=== PATIENT | male | born 1995 | race Caucasian/White ===

== ENCOUNTER 2024-09-23 08:48 | Outpatient (CLI) | payer OTHER | END 2024-09-23 08:49 | disposition home or self-care (01) | LOC: CSHSLEEP 08:48 | PROVIDERS: ATTEND Family Medicine | DX: G47.33 Obstructive sleep apnea (adult) (pediatric) (principal); R53.83 Other fatigue; E66.9 Obesity, unspecified; Z68.32 Body mass index [BMI] 32.0-32.9, adult; R06.83 Snoring; G47.00 Insomnia, unspecified | CPT/HCPCS: 95800 ==